=== PATIENT | female | born 1975 | race Hispanic/Latino ===

== ENCOUNTER → 2020-04-12 | Emergency (ER) | payer MEDICAID ==
[~2020-04-12] VITALS: Ht 160 cm; Wt 69.4 kg
[~2020-04-12] MED LIST: LISINOPRIL20 MG PO
--- NOTE | 2020-04-13 17:48 | EKG ---
[facility] [address] [place], [place] [address] Signed Sinus bradycardia Cannot rule out Anterior infarct , age undetermined Abnormal ECG No previous ECGs available Confirmed by KRYS BAIRES DO ([id number]) on 04/13/2020 5:48:37 PM Electronically Signed By: KRYS BAIRES DO 04/13/20 1748 PATIENT NAME: SHANAE FALK Electrocardiogram DATE OF : 71 PHYSICIAN: KRYS BAIRES DO REPORT #: [id number] REPORT IS CONFIDENTIAL AND NOT TO BE RELEASED WITHOUT AUTHORIZATION
== END ==
LOC: ED 10:38
DX: R07.9 Chest pain, unspecified (principal); R03.0 Elevated blood-pressure reading, without diagnosis of hypertension
CPT/HCPCS: 80053; 84484; 85025; 93005; 93010; 99285-25